=== PATIENT | male | born 1965 | race Caucasian/White ===

== ENCOUNTER 2017-06-07 17:42 | Emergency (ER) | payer OTHER ==
[~2017-06-07] VITALS: Ht 172.7 cm; Wt 106.1 kg
[~2017-06-07 17:42] MED LIST: ALBU90OI; ALBU90OI INH; ALPR1 PO; AMIT10 PO; AMLO5; AMLO5 PO; AMOCLA875 PO; AMOX500 PO; Advair Hfa 230-12 GM; CARI350; CARI350 PO; CARV6.25 PO; CEPH500; CEPH500 PO; CLIN300 PO; CLON.2TP TP; CLON1 PO; CODGUAEL PO; CYCL10; CYCL10 PO; DIAZ10; DIAZ5; DOXA2; DRON5 PO; DULO30 PO; FOLI1; HYDACE10B; HYDACE10B PO; HYDACE5; HYDACE5 PO; HYDACE5325 PO; HYDMOR4; HYDMOR8 PO; LACT10SY; LAMOTRIGINE300 MG PO; LISI20 PO; LORA1 PO; LORA10ER; LORA2 PO; LOSA50; METF500 PO; METO100ER; MORP15ER PO; NIFE30ER; OXYACE5T PO; PENVK500 PO; PHENERGAN; PIOG15; PRED20 PO; PROM25 PO; PROM6.25SY; PROMETHAZINE; Percocet 10-321 EACH PO; RXLORA1 PO; RXTRAM50 PO; SERT25; SUMA25; TRAM50 PO; TRAZ50 PO; TRIAOI; TRIHYD PO; ZOLP10 PO
[2017-06-07 19:04] LABS: BASOPHILS ABSOLUTE AUTO 0.02 K/mm3 (0.00-0.23); BASOPHILS PERCENT AUTO 0 % (0-2); EOSINOPHILS ABSOLUTE AUTO 0.54 K/mm3 (0.00-0.68); EOSINOPHILS PERCENT AUTO 8 % (0-6); Hematocrit 42.5 % (37.0-53.0); Hemoglobin 13.6 g/dL (13.5-17.5); IMMATURE GRAN ABSOLUTE AUTO 0.02 K/mm3 (0.00-0.10); IMMATURE GRAN PERCENT AUTO 0 % (0-1); LYMPHOCYTES ABSOLUTE AUTO 1.71 K/mm3 (0.84-5.20); LYMPHOCYTES PERCENT AUTO 25 % (21-46); MONOCYTES ABSOLUTE AUTO 1.07 K/mm3 (0.16-1.47); MONOCYTES PERCENT AUTO 16 % (4-13); Mean Corpuscular HGB 28.3 pg (26.0-34.0); Mean Corpuscular Volume 89 fL (80-100); Mean Platelet Volume 10.3 fL (9.1-12.4); NEUTROPHILS ABSOLUTE AUTO 3.46 K/mm3 (1.96-9.15); NEUTROPHILS PERCENT AUTO 51 % (41-73); Platelet Count 209 K/mm3 (150-400); RDW Coefficient Variation 13.2 % (11.7-14.2); RDW Standard Deviation 43.1 fL (35.1-46.3); White Blood Cell Count 6.82 K/mm3 (4.00-11.30)
[2017-06-07 19:12] LABS: Source, Urine Clean Catch
[2017-06-07 19:22] LABS: Appearance, Urine Hazy (Clear); Blood, Urine 1+ (Neg); Color, Urine Amber (P-Yellow); Glucose Qualitative, Urine Neg (Neg); Ketones, Urine 1+ (Neg); Leukocyte Esterase, Urine 1+ (Neg); Nitrite, Urine Neg (Neg); Protein, Urine 3+ (Neg); Specific Gravity, Urine 1.025 (1.003-1.022); Urobilinogen, Urine 1+ (Normal)
[2017-06-07 19:26] LABS: Alanine Aminotransfer (ALT/SGP 34 U/L (12-78); Albumin, Blood 3.5 g/dL (3.4-5.0); Albumin/Globulin Ratio 1.2 (0.8-1.8); Alk Phos 91 U/L (50-136); Anion Gap 8 mmol/L (6-16); Aspartate Aminotrans (AST/SGOT 34 U/L (12-37); Bilirubin, Total 0.4 mg/dL (0.1-1.0); Blood Urea Nitrogen 29 mg/dL (8-24); Bun/Creatinine Ratio 21.6 (12.0-20.0); CO2, Blood 26 mmol/L (21-32); Calcium, Blood 8.4 mg/dL (8.5-10.1); Chloride, Blood 106 mmol/L (98-108); Creatinine, Blood 1.34 mg/dL (0.60-1.20); Ethanol (Alcohol), Blood, Med <3 mg/dL; Glomerular Filtration Rate 59 (60-); Glucose, Blood 116 mg/dL (70-99); Potassium, Blood 3.9 mmol/L (3.5-5.5); Sodium, Blood 140 mmol/L (136-145); Total Protein, Blood 6.5 g/dL (6.4-8.2)
[2017-06-07 19:42] LABS: Bacteria Few /hpf; Red Blood Cells, Urine Not Seen /hpf (0-2); Squamous Epithelial Cells Few /hpf (Few); White Blood Cells, Urine Not Seen /hpf (0-5)
[2018-04-01] MEDS ORDERED: LAMO100 PO (19:23)
[2018-04-01] MEDS ORDERED: PRAZ1 PO (19:23)
[2018-04-01] MEDS ORDERED: GABA300 PO (19:24)
[2018-04-01] MEDS ORDERED: TEMA15 PO (19:24)
[2018-04-01] MEDS ORDERED: Amlodipine-Ben1 EAC3 PO (19:24)
[2018-04-01] MEDS ORDERED: HYDPAM25 PO (19:24)
[2018-04-01] MEDS ORDERED: Tizanidine HCl2 MG (19:24)
[2018-04-01] MEDS ORDERED: Neurontin 100100 MG PO (19:49)
== END 2017-06-07 22:27 | disposition home or self-care (01) ==
LOC: ER 17:42
PROVIDERS: Emergency Medicine
DX: R51 Headache (principal); R20.2 Paresthesia of skin; Z88.8 Allergy status to other drugs, medicaments and biological substances; Z88.6 Allergy status to analgesic agent; Z88.2 Allergy status to sulfonamides; Z91.040 Latex allergy status; Z79.899 Other long term (current) drug therapy; Z79.891 Long term (current) use of opiate analgesic; I10 Essential (primary) hypertension; E11.9 Type 2 diabetes mellitus without complications; F17.200 Nicotine dependence, unspecified, uncomplicated
CPT/HCPCS: 36415; 70450; 71046; 80053; 81001; 85025; 87086; 93005; 93010; 96374; 96375; 99284; G0480; J0780; J1200

== ENCOUNTER 2017-07-06 23:03 | Emergency (ER) | payer OTHER ==
[~2017-07-06] VITALS: Ht 172.7 cm; Wt 105.2 kg
[2017-07-07 00:18] LABS: BASOPHILS ABSOLUTE AUTO 0.02 K/mm3 (0.00-0.23); BASOPHILS PERCENT AUTO 0 % (0-2); EOSINOPHILS PERCENT AUTO 6 % (0-6); Hematocrit 42.6 % (37.0-53.0); Hemoglobin 13.4 g/dL (13.5-17.5); IMMATURE GRAN ABSOLUTE AUTO 0.02 K/mm3 (0.00-0.10); IMMATURE GRAN PERCENT AUTO 0 % (0-1); LYMPHOCYTES ABSOLUTE AUTO 1.38 K/mm3 (0.84-5.20); LYMPHOCYTES PERCENT AUTO 16 % (21-46); MONOCYTES ABSOLUTE AUTO 1.32 K/mm3 (0.16-1.47); MONOCYTES PERCENT AUTO 15 % (4-13); Mean Corpuscular HGB 28.2 pg (26.0-34.0); Mean Corpuscular HGB Conc 31.5 g/dL (31.5-36.5); Mean Corpuscular Volume 90 fL (80-100); Mean Platelet Volume 10.4 fL (9.1-12.4); NEUTROPHILS ABSOLUTE AUTO 5.39 K/mm3 (1.96-9.15); NEUTROPHILS PERCENT AUTO 63 % (41-73); Platelet Count 220 K/mm3 (150-400); RDW Coefficient Variation 13.3 % (11.7-14.2); Red Blood Cell Count 4.76 M/mm3 (4.30-5.90); White Blood Cell Count 8.63 K/mm3 (4.00-11.30)
[2017-07-07 00:37] LABS: Alanine Aminotransfer (ALT/SGP 23 U/L (12-78); Albumin, Blood 3.2 g/dL (3.4-5.0); Albumin/Globulin Ratio 1.1 (0.8-1.8); Alk Phos 92 U/L (50-136); Anion Gap 6 mmol/L (6-16); Aspartate Aminotrans (AST/SGOT 12 U/L (12-37); Bilirubin, Total 0.3 mg/dL (0.1-1.0); Blood Urea Nitrogen 19 mg/dL (8-24); Bun/Creatinine Ratio 22.5 (12.0-20.0); CO2, Blood 27 mmol/L (21-32); Calcium, Blood 7.9 mg/dL (8.5-10.1); Chloride, Blood 107 mmol/L (98-108); Creatinine, Blood 0.84 mg/dL (0.60-1.20); Glomerular Filtration Rate >60 (60-); Glucose, Blood 126 mg/dL (70-99); Potassium, Blood 3.7 mmol/L (3.5-5.5); Sodium, Blood 140 mmol/L (136-145); Total Protein, Blood 6.2 g/dL (6.4-8.2)
[2018-04-01] MEDS ORDERED: PRAZ1 PO (19:23)
[2018-04-01] MEDS ORDERED: LAMO100 PO (19:23)
[2018-04-01] MEDS ORDERED: HYDPAM25 PO (19:24)
[2018-04-01] MEDS ORDERED: Amlodipine-Ben1 EAC3 PO (19:24)
[2018-04-01] MEDS ORDERED: Tizanidine HCl2 MG (19:24)
[2018-04-01] MEDS ORDERED: TEMA15 PO (19:24)
[2018-04-01] MEDS ORDERED: GABA300 PO (19:24)
[2018-04-01] MEDS ORDERED: Neurontin 100100 MG PO (19:49)
== END 2017-07-07 01:21 | disposition home or self-care (01) ==
LOC: ER 23:03
PROVIDERS: Emergency Medicine
DX: A08.4 Viral intestinal infection, unspecified (principal); I10 Essential (primary) hypertension; E11.9 Type 2 diabetes mellitus without complications; F32.9 Major depressive disorder, single episode, unspecified; F17.200 Nicotine dependence, unspecified, uncomplicated; Z88.6 Allergy status to analgesic agent; Z88.2 Allergy status to sulfonamides; Z88.5 Allergy status to narcotic agent; Z88.8 Allergy status to other drugs, medicaments and biological substances; Z91.040 Latex allergy status; Z90.49 Acquired absence of other specified parts of digestive tract; Z79.899 Other long term (current) drug therapy
CPT/HCPCS: 36415; 80053; 83690; 85025; 96361; 96374; 99283; J2405; J7030

== ENCOUNTER 2018-02-06 21:10 | Emergency (ER) | payer OTHER ==
[~2018-02-06] VITALS: Ht 172.7 cm; Wt 106.1 kg
== END 2018-02-07 00:50 | disposition home or self-care (01) ==
LOC: ER 21:10
DX: R20.2 Paresthesia of skin (principal); Z88.6 Allergy status to analgesic agent; Z88.2 Allergy status to sulfonamides; Z88.8 Allergy status to other drugs, medicaments and biological substances; Z91.040 Latex allergy status; Z79.899 Other long term (current) drug therapy; I10 Essential (primary) hypertension; E11.9 Type 2 diabetes mellitus without complications; F17.200 Nicotine dependence, unspecified, uncomplicated
CPT/HCPCS: 99282

== ENCOUNTER 2018-06-26 10:30 | Emergency (ER) | payer OTHER ==
[~2018-06-26] VITALS: Ht 170.2 cm; Wt 111.1 kg
[~2018-06-26 10:30] MED LIST changes: +AMIT50 PO; +Amlodipine-Ben1 EAC3 PO; +ESCI20 PO; +FLUT1DIS5 INH; +GABA300 PO; +HYDHCL25 PO; +HYDPAM25 PO; +LAMO100 PO; +LINZESS145 MCG PO; +Neurontin 100100 MG PO; +PRAZ1 PO; +TEMA15 PO; +Tizanidine HCl2 MG
[2018-06-26 10:55] LABS: BASOPHILS ABSOLUTE AUTO 0.05 K/mm3 (0.00-0.23); BASOPHILS PERCENT AUTO 1 % (0-2); EOSINOPHILS ABSOLUTE AUTO 0.29 K/mm3 (0.00-0.68); EOSINOPHILS PERCENT AUTO 3 % (0-6); Hematocrit 46.3 % (37.0-53.0); Hemoglobin 14.5 g/dL (13.5-17.5); IMMATURE GRAN ABSOLUTE AUTO 0.07 K/mm3 (0.00-0.10); IMMATURE GRAN PERCENT AUTO 1 % (0-1); LYMPHOCYTES ABSOLUTE AUTO 2.41 K/mm3 (0.84-5.20); LYMPHOCYTES PERCENT AUTO 27 % (21-46); MONOCYTES ABSOLUTE AUTO 0.99 K/mm3 (0.16-1.47); MONOCYTES PERCENT AUTO 11 % (4-13); Mean Corpuscular HGB 28.4 pg (26.0-34.0); Mean Corpuscular HGB Conc 31.3 g/dL (31.5-36.5); Mean Corpuscular Volume 91 fL (80-100); Mean Platelet Volume 10.1 fL (9.1-12.4); NEUTROPHILS ABSOLUTE AUTO 5.22 K/mm3 (1.96-9.15); NEUTROPHILS PERCENT AUTO 58 % (41-73); Platelet Count 230 K/mm3 (150-400); RDW Coefficient Variation 13.6 % (11.7-14.2); RDW Standard Deviation 45.2 fL (35.1-46.3); Red Blood Cell Count 5.11 M/mm3 (4.30-5.90); White Blood Cell Count 9.03 K/mm3 (4.00-11.30)
[2018-06-26 10:56] LABS: Base Excess Venous 3.6 mmol/L; Bicarbonate Venous 26.8 mmol/L (24.0-30.0); PO2 Venous 144 mmHg (38-42); pH Blood Venous 7.39 (7.34-7.37)
[2018-06-26 11:19] LABS: Alanine Aminotransfer (ALT/SGP 24 U/L (12-78); Albumin, Blood 3.5 g/dL (3.4-5.0); Albumin/Globulin Ratio 1.2 (0.8-1.8); Alk Phos 96 U/L (50-136); Anion Gap 6 mmol/L (6-16); Aspartate Aminotrans (AST/SGOT 13 U/L (12-37); Bilirubin, Total 0.2 mg/dL (0.1-1.0); Blood Urea Nitrogen 17 mg/dL (8-24); Bun/Creatinine Ratio 16.7 (12.0-20.0); CO2, Blood 28 mmol/L (21-32); Calcium, Blood 8.3 mg/dL (8.5-10.1); Chloride, Blood 107 mmol/L (98-108); Creatinine, Blood 1.02 mg/dL (0.60-1.20); Ethanol (Alcohol), Blood, Med <3 mg/dL; Globulin, Blood 2.8 g/dL (2.2-4.0); Glomerular Filtration Rate >60 (60-); Glucose, Blood 151 mg/dL (70-99); Potassium, Blood 4.5 mmol/L (3.5-5.5); Sodium, Blood 141 mmol/L (136-145); Total Protein, Blood 6.3 g/dL (6.4-8.2); Troponin I <0.015 ng/mL (0.000-0.040)
[2018-06-26] MEDS ORDERED: Zithromax250 MG PO (12:36)
== END 2018-06-26 13:40 | disposition home or self-care (01) ==
LOC: ER 10:30
PROVIDERS: Emergency Medicine
DX: J18.1 Lobar pneumonia, unspecified organism (principal); G89.29 Other chronic pain; Z88.8 Allergy status to other drugs, medicaments and biological substances; Z88.6 Allergy status to analgesic agent; Z88.2 Allergy status to sulfonamides; Z91.040 Latex allergy status; Z79.899 Other long term (current) drug therapy; I10 Essential (primary) hypertension; E11.9 Type 2 diabetes mellitus without complications; F32.9 Major depressive disorder, single episode, unspecified; F17.200 Nicotine dependence, unspecified, uncomplicated
CPT/HCPCS: 36415; 71046; 80053; 82803; 84484; 85025; 93005; 93010; 94640; 96361; 96365; 99284-25; G0480; J0696; J7030; J7120

== ENCOUNTER 2018-11-11 20:34 | Emergency (ER) | payer OTHER ==
[~2018-11-11] VITALS: Ht 157.5 cm; Wt 112.5 kg
[~2018-11-11 20:34] MED LIST changes: +Zithromax250 MG PO
[2018-11-11] MEDS ORDERED: PROM25 PO (21:06)
[2018-11-11] MEDS ORDERED: ALPR1 PO (21:07)
[2018-11-11] MEDS ORDERED: ALBU90OI6 INH (21:08)
[2018-11-11] MEDS ORDERED: Bupropion Xl150 MG PO (21:08)
[2018-11-11] MEDS ORDERED: VARE1 PO (21:09)
== END 2018-11-11 22:52 | disposition home or self-care (01) ==
LOC: ER 20:34
DX: G89.29 Other chronic pain (principal); Z88.6 Allergy status to analgesic agent; Z88.8 Allergy status to other drugs, medicaments and biological substances; Z88.2 Allergy status to sulfonamides; Z91.040 Latex allergy status; Z79.899 Other long term (current) drug therapy; I10 Essential (primary) hypertension; E11.9 Type 2 diabetes mellitus without complications; F32.9 Major depressive disorder, single episode, unspecified; F17.200 Nicotine dependence, unspecified, uncomplicated
CPT/HCPCS: 99282; A9270

== ENCOUNTER 2019-06-24 20:16 | Emergency (ER) | payer OTHER ==
[~2019-06-24] VITALS: Ht 170.2 cm; Wt 119.8 kg
[~2019-06-24 20:16] MED LIST changes: +ALBU90OI6 INH; +Bupropion Xl150 MG PO; +VARE1 PO
== END 2019-06-24 22:23 | disposition home or self-care (01) ==
LOC: ER 20:16
DX: R10.32 Left lower quadrant pain (principal); I10 Essential (primary) hypertension; E11.9 Type 2 diabetes mellitus without complications; F32.9 Major depressive disorder, single episode, unspecified; F17.200 Nicotine dependence, unspecified, uncomplicated; Z79.899 Other long term (current) drug therapy; Z79.51 Long term (current) use of inhaled steroids
CPT/HCPCS: 99283; A9270

== ENCOUNTER 2020-02-17 21:46 | Inpatient (IN) | payer OTHER ==
[~2020-02-17] VITALS: Ht 177.8 cm; Wt 124.3 kg
[~2020-02-17 21:46] MED LIST changes: -ALBU90OI6 INH; +CODEINE-GUAIFE120 M1 PO
[2020-02-18 03:27] LABS: BASOPHILS ABSOLUTE AUTO 0.04 K/mm3 (0.00-0.23); BASOPHILS PERCENT AUTO 0 % (0-2); EOSINOPHILS ABSOLUTE AUTO 0.21 K/mm3 (0.00-0.68); EOSINOPHILS PERCENT AUTO 2 % (0-6); Hematocrit 46.6 % (37.0-53.0); Hemoglobin 14.7 g/dL (13.5-17.5); IMMATURE GRAN ABSOLUTE AUTO 0.11 K/mm3 (0.00-0.10); IMMATURE GRAN PERCENT AUTO 1 % (0-1); LYMPHOCYTES ABSOLUTE AUTO 2.59 K/mm3 (0.84-5.20); LYMPHOCYTES PERCENT AUTO 26 % (21-46); MONOCYTES ABSOLUTE AUTO 1.04 K/mm3 (0.16-1.47); MONOCYTES PERCENT AUTO 10 % (4-13); Mean Corpuscular HGB 27.8 pg (26.0-34.0); Mean Corpuscular HGB Conc 31.5 g/dL (31.5-36.5); Mean Corpuscular Volume 88 fL (80-100); Mean Platelet Volume 10.2 fL (9.1-12.4); NEUTROPHILS ABSOLUTE AUTO 6.16 K/mm3 (1.96-9.15); NEUTROPHILS PERCENT AUTO 61 % (41-73); Platelet Count 206 K/mm3 (150-400); RDW Coefficient Variation 13.3 % (11.7-14.2); RDW Standard Deviation 43.6 fL (35.1-46.3); Red Blood Cell Count 5.29 M/mm3 (4.30-5.90); White Blood Cell Count 10.15 K/mm3 (4.00-11.30)
[2020-02-18 04:00] LABS: Alanine Aminotransfer (ALT/SGP 21 U/L (12-78); Albumin, Blood 3.5 g/dL (3.4-5.0); Albumin/Globulin Ratio 1.2 (0.8-1.8); Alk Phos 98 U/L (50-136); Anion Gap 4 mmol/L (6-16); Aspartate Aminotrans (AST/SGOT 10 U/L (12-37); Bilirubin, Total 0.4 mg/dL (0.1-1.0); Blood Urea Nitrogen 26 mg/dL (8-24); Bun/Creatinine Ratio 23.2 (12.0-20.0); CO2, Blood 29 mmol/L (21-32); Calcium, Blood 8.1 mg/dL (8.5-10.1); Chloride, Blood 107 mmol/L (98-108); Creatinine, Blood 1.12 mg/dL (0.60-1.20); Glomerular Filtration Rate >60 (60-); Glucose, Blood 211 mg/dL (70-99); Potassium, Blood 3.9 mmol/L (3.5-5.5); Sodium, Blood 140 mmol/L (136-145); Total Protein, Blood 6.5 g/dL (6.4-8.2); Troponin I <0.015 ng/mL (0.000-0.040)
[2020-02-18] MEDS ORDERED: PRED20 PO (05:10)
[2020-02-18] MEDS ORDERED: BENZ100A PO (05:10)
[2020-02-18] MEDS ORDERED: DOXY100 PO (05:13)
[2020-02-18] MEDS ORDERED: BUPROPION XL150 M1 PO (14:09)
[2020-02-18] MEDS ORDERED: PRAZ2 PO (14:11)
[2020-02-18] MEDS ORDERED: QUETIAPINE FUMA50 M2 PO (14:11)
[2020-02-18] MEDS ORDERED: Methocarbamol500 MG PO (14:11)
[2020-02-18] MEDS ORDERED: Trazodone HCl300 MG PO (14:12)
[2020-02-18] MEDS ORDERED: HYDHCL25 PO (14:13)
[2020-02-18] MEDS ORDERED: FLUTICASONE-SA1 EA10 INH (14:14)
[2020-02-18] MEDS ORDERED: IPRAT-ALBUT 0.5-3 ML NEB (14:15)
[2020-02-18] MEDS ORDERED: GUAI600T33 PO (14:16)
[2020-02-18] MEDS ORDERED: ALBU90OI6 INH (14:17)
[2020-02-18] MEDS ORDERED: GABAPENTIN600 MG PO (14:18)
[2020-02-18] MEDS ORDERED: LORAZEPAM0.5 MG PO (14:19)
--- NOTE | 2020-02-18 16:36 | NUR ---
ADMISSION: REPORT RECEIVED FROM ED AT ABOUT 0715. PT TO ROOM AT ABOUT 0725. UPON ASSESSMENT PT IS IN NO VISABLE DISTRESS, DOES NOT APPEAR SOB. VSS, A/O SOMEWHAT DROWSY, PT REPORTS FROM BEING AWAKE MOST TO THE NIGHT. SATS 95% ON 1L NC. PT REPORTS CHEST IS PAINFUL AND ACHY WHEN HE BREATHES IN. WILL CTM PT STATUS.
--- NOTE | 2020-02-18 16:39 | NUR ---
SUMMARY: PT REPORTS FEELING "MUCH BETTER" SINCE ADMISSION. PT HAS RECEIVED MEDICATION OF PAIN AND BREATHING TREATMENTS WELL SOLU-MEDROL. PT REPORTS HE CAN TAKE A DEEPER BREATH WITHOUT IT BEING PAINFUL AND DEMONSTRATES. ANTIBIOTICS INFUSED AND TELE WNL. WILL CTM AND REPORT TO NOC RN
--- NOTE | 2020-02-18 22:30 | NUR ---
HAND OFF GIVEN TO Sudarshan HAJI RN USING SBAR.
--- NOTE | 2020-02-18 22:30 | NUR ---
ASSUMED CARE PT. PT SLEEPING WITH O2 OFF R/A SATS 87% REPLACED O2 WITH SATS IMMEDIATE 91%.
[2020-02-19] MEDS ORDERED: FAMO20 PO (12:29)
[2020-02-19] MEDS ORDERED: Q-Tussin100 MG/5 M PO (12:29)
[2020-02-19] MEDS ORDERED: PRED20 PO (12:30)
[2020-02-19] MEDS ORDERED: AMOCLA875 PO (12:31)
[2020-02-19] MEDS ORDERED: [UNRECOGNIZED DRUG - OTHER] PO (12:32)
--- NOTE | 2020-02-19 12:55 | NUR ---
DISCHARGE PT EDUCATED ON AND RECEIVED PRINTED DISCHARGE INSTRUCTIONS AND VERBALIZED AN UNDERSTANDING. SATS STABLE ON RA AND WITH ACTIVITY. IV DC'D. TELE BOX RETURNED TO [employer] TEACHER. RX FAXED TO [facility] [address]. PT GATHERED ALL PERSONAL BELONGINGS AND WAITING FOR RIDE HOME.
== END 2020-02-19 13:02 | disposition home or self-care (01) | DRG 193 ==
LOC: ER 21:46 → SURS 02-18 05:41
PROVIDERS: Emergency Medicine; ADMIT Internal Medicine
DX: J18.9 Pneumonia, unspecified organism (principal); J96.01 Acute respiratory failure with hypoxia; J44.0 Chronic obstructive pulmonary disease with (acute) lower respiratory infection; J44.1 Chronic obstructive pulmonary disease with (acute) exacerbation; F41.9 Anxiety disorder, unspecified; E11.9 Type 2 diabetes mellitus without complications; I10 Essential (primary) hypertension; F17.210 Nicotine dependence, cigarettes, uncomplicated; E66.01 Morbid (severe) obesity due to excess calories; Z68.39 Body mass index [BMI] 39.0-39.9, adult
CPT/HCPCS: 36415; 71046; 80053; 82947; 84484; 85025; 93005; 93010; 94640; 94644; 94762; 96374; 96375; 99285-25; A9270-GY; J0456; J0696; J1650; J2270; J2405; J2930; J7050; J7512; Q2038

== ENCOUNTER 2020-02-19 19:50 | Inpatient (IN) | payer OTHER ==
[~2020-02-19] VITALS: Ht 177.8 cm; Wt 126.2 kg
[~2020-02-19 19:50] MED LIST changes: +ALBU90OI6 INH; +BENZ100A PO; +BUPROPION XL150 M1 PO; +DOXY100 PO; +FAMO20 PO; +FLUTICASONE-SA1 EA10 INH; +GABAPENTIN600 MG PO; +GUAI600T33 PO; +IPRAT-ALBUT 0.5-3 ML NEB; +LORAZEPAM0.5 MG PO; +Methocarbamol500 MG PO; +PRAZ2 PO; +Q-Tussin100 MG/5 M PO; +QUETIAPINE FUMA50 M2 PO; +Trazodone HCl300 MG PO; +[UNRECOGNIZED DRUG - OTHER] PO
[2020-02-19 20:27] LABS: BASOPHILS ABSOLUTE AUTO 0.03 K/mm3 (0.00-0.23); BASOPHILS PERCENT AUTO 0 % (0-2); EOSINOPHILS ABSOLUTE AUTO 0.04 K/mm3 (0.00-0.68); EOSINOPHILS PERCENT AUTO 0 % (0-6); Hematocrit 44.3 % (37.0-53.0); Hemoglobin 13.9 g/dL (13.5-17.5); IMMATURE GRAN ABSOLUTE AUTO 0.15 K/mm3 (0.00-0.10); IMMATURE GRAN PERCENT AUTO 1 % (0-1); LYMPHOCYTES ABSOLUTE AUTO 1.73 K/mm3 (0.84-5.20); LYMPHOCYTES PERCENT AUTO 8 % (21-46); MONOCYTES ABSOLUTE AUTO 1.93 K/mm3 (0.16-1.47); MONOCYTES PERCENT AUTO 9 % (4-13); Mean Corpuscular HGB 27.2 pg (26.0-34.0); Mean Corpuscular HGB Conc 31.4 g/dL (31.5-36.5); Mean Corpuscular Volume 87 fL (80-100); Mean Platelet Volume 10.4 fL (9.1-12.4); NEUTROPHILS ABSOLUTE AUTO 16.68 K/mm3 (1.96-9.15); NEUTROPHILS PERCENT AUTO 81 % (41-73); Platelet Count 235 K/mm3 (150-400); RDW Coefficient Variation 13.5 % (11.7-14.2); RDW Standard Deviation 43.2 fL (35.1-46.3); Red Blood Cell Count 5.11 M/mm3 (4.30-5.90); White Blood Cell Count 20.56 K/mm3 (4.00-11.30)
[2020-02-19 21:17] LABS: Albumin, Blood 3.8 g/dL (3.4-5.0); Albumin/Globulin Ratio 1.2 (0.8-1.8); Bilirubin, Total 0.4 mg/dL (0.1-1.0); Bun/Creatinine Ratio 26.5 (12.0-20.0); Calcium, Blood 9.1 mg/dL (8.5-10.1); Creatinine, Blood 1.36 mg/dL (0.60-1.20); Globulin, Blood 3.1 g/dL (2.2-4.0); Potassium, Blood 4.5 mmol/L (3.5-5.5); Total Protein, Blood 6.9 g/dL (6.4-8.2)
[2020-02-20 06:08] LABS: Influenza A Negative (NEGATIVE); Influenza B Negative (NEGATIVE)
--- NOTE | 2020-02-20 07:31 | NUR ---
SHIFT SUMMARY NEW ADMIT TO FLOOR THIS AM AROUND 0245 FOR COPD EX R/T PNEUMONIA & SEPSIS. WAS DC'D YESTERDAY 02/19/20 FOR EXACT SAME DX. AOX4. VSS. TELE NSR c BBB @87. SPO2 >90% ON RA. E/U RESPIRATIONS. LUNGS ARE DIM & HAVE EXPIRATORY WHEEZES T/O. PT RECIEVED BREATHING TX IN ER. RECIEVED 1ST DOSE ROCEPHIN & AZITHROMYACIN PER ORDERS. REPORTED 9/10 PAIN IN LUNGS WORSE c INSPIRATION, STATES THEY FEEL "ON FIRE"-MEDICATED c 50MCG FENTANYL & PT DENIES ANY RELIEF. MEDICATED c GUIFENESEN FOR COUGH. REPORTED NAUSEA & MEDICATED 1X c ZOFRAN. CALL LIGHT IN REACH.
--- NOTE | 2020-02-20 12:48 | NUR ---
PAtient is sitting on EOB and alert. Patient tells me about his medical history and current condition. Patient talks about his 7yrs in the [employer], his yrs as a security gaurd in [place] and his spiritual journey. Patient is emotional at times and shares very personal information. I listen empathically, normalize patient's experience, hear confession and provide pastoral credit counselor and prayer. Patient responds well and displays evidence of catharsis and restored princess. I will continue to remain available to patient and family.
--- NOTE | 2020-02-20 18:14 | NUR ---
PT HAS BEEN ANXIOUS OFF AND ON THROUGH DAY. REPORTS HE FEELS LIKE HE NEEDS TO "BOLT" AT TIMES DUE TO HX OF PTSD. HAS BEEN WALKING IN HALLWAY AND LISTENING TO MUSIC TO EASE ANXIETY. AT 1600 HE STARTED TO REPORT HE WAS GOING HOME AND IF THAT WOULD BE OK. SPOKE WITH MD AND DISCUSSED WITH PT HE COULD LEAVE AMA OR HE COULD BE GIVEN HIS NEXT DOSE OF ATIVAN AND SEE IF THAT HELPED HIS FEELINGS OF ANXIETY. PT COOPERATIVE STATING HE DIDN'T WANT TO LEAVE IF THE DRNargis DIDN'T FEEL IT WAS TIME AND WAS OK WITH TAKING ANOTHER DOSE OF LORAZEPAM. HAS SINCE BEEN MOVING ABOUT IN ROOM STATING HE IS FEELING BETTER. BP ELEVATED AND RECHECKED TWICE. CALLED MD ABOUT CONTINUED ELEVATED BP AND NEW ORDERS GIVEN. NO RESP DISTRESS SEEN TODAY. DOES REPORT ONGOING PAIN TO CHEST EXPECIALLY WHEN HE TAKES A DEEP BREATH. INSTRUCTED ON IS AND HAS BEEN SEEN USING IT SEVERAL TIMES.
--- NOTE | 2020-02-20 19:37 | NUR ---
ASSUMED CARE. MARIBEL JUST GOT OUT OF THE SHOWER, SHAVED AND GOT DRESSED. HE SAID HE FEELS SO MUCH BETTER. TELEMETRY IS OFF AGAIN, AND CONTINUES TO FALL OFF. HE STATES HE GETS WRAPPED UP INTO IT OR IT FALLS AND COMES OFF. HE HAS SEVERAL SNACK CHIPS ALL AROUND HIM. DISCUSSED DIABETIC RISK FOR CARBS. HE SAID HE KNOWS.ENCOURAGED HIM TO RE-THINK HIS DIET FOR THE SAFETY OF HIS HEALTH. HE DID NOT SAY MUCH TO IT. LUNG SOUNDS ARE EXPIRTORY WHEEZES THROUGHOUT. COUGH IS OCCATIONAL, DRY. HR REGULAR PER TELE WITH BBB. NO CHEST PAIN NOTED. ABDOMIN DISTENDED, FIRM, AND HYPERACTIVE BT. STATES IT HAS BEEN THAT WAY. DISCUSSED PAIN MANAGMENT, HE DOES NOT WANT TO USE THE FENTAYNL, STATES THERE WAS SOME CONFUSION TODAY. HE FEELS IF HE JUST HAS ANOTHER PILL OF NORCO HE WILL BE BETTER OFF THEN USING THE FENTANYL. HE ALSO ASKED IF HE CAN SWITCH ATIVAN FOR XANAX, AND HAVE NICOTINE PATCH. WILL CALL HOSPITALIST IN REGARDS TO THE REQUEST. HE PLANS TO GO FOR A WALK ON HIS OWN IN THE HALLS. WILL CONTINUE TO MONITOR.
--- NOTE | 2020-02-20 20:19 | NUR ---
SPOKE TO HOSPITALIST CHILO HENNING REGARDING INCREASE NORCO TO 2 TABS, CHANGE ATIVAN FOR XANAX, NICOTINE PATCH, AND CLARFICATION ON COUGH MEDICATIONS. ALL ORDERS RECEIVED.
--- NOTE | 2020-02-21 05:43 | NUR ---
SHIFT SUMMARY: MARIBEL HAD A BETTER NIGHT. HE WAS ABLE TO GET A GOOD NIGHT SLEEP FOR ABOUT 4 HOURS. HE SAID THAT IS THE BEST HE GOT IN A WHILE. PAIN IS BETTER CONTROLLED WITH 2 NORCO EVERY 4 HOURS. WE DISCUSSED SEVERAL MED CHANGES THAT CHILO HENNING APPROVED. WE CHANGED HIM TO NORCO 1-2 TABS EVERY 4 HOURS, XANAX INSTEAD OF ATIVAN, AND A NICOTINE PATCH. HE WAS UP WALKING IN THE HALLS SEVERAL TIMES. WE DID DISCUSS HIS ADA DIET THAT HE DOES NOT FOLLOW. HE EATS ALOT OF CARB FOODS, SUCH BAG OF CHIPS AND OTHER ITEMS HE GETS FROM THE VENDING MACHINES. BLOOD SUGAR WAS HIGH YESTERDAY AND COULD BE BECAUSE OF THIS AND THE COUGH SYRUP WHICH WAS SUGAR. WE SWITCHED HIM TO NON-SUGAR COUGH SYRUP. VS WNL, AFEBRILE. NO OTHER CHANGES TO REPORT. CALL LIGHT IN REACH.
[2020-02-21] MEDS ORDERED: Methocarbamol500 MG PO (12:57)
--- NOTE | 2020-02-21 13:00 | NUR ---
DISCHARGE INSTRUCTIONS COMPLETED AND DISCUSSED WITH PT EXPRESSING UNDERSTANDING. SCRIPTS FAXED TO [facility] [place]. TO [facility] VIA W/C.
[2020-02-21] MEDS ORDERED: Norco 5-325 Ta1 EACH PO (13:06)
[2020-02-21] MEDS ORDERED: NICODERM CQ1 EAC1 TOP (13:06)
[2020-02-21] MEDS ORDERED: LACTOBACILLUS1 EAC4 PO (13:07)
[2020-02-21] MEDS ORDERED: AMLO10 PO (13:07)
[2020-02-21] MEDS ORDERED: DELTASONE20 MG PO (13:08)
--- NOTE | 2020-02-21 13:29 | NUR ---
Patientis sitting on a chair and alert. Patient tells me about how he has improved and that he is hoping to go home today. 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 I listen empathically, reinforce helpful attitudes and practices and provide spiritual guidance. Patient responds well and voices appreciation for the visit
== END 2020-02-21 13:48 | disposition home or self-care (01) | DRG 871 ==
LOC: ER 19:50 → MEDS 02-20 01:15
PROVIDERS: Physician Assistant; ADMIT Internal Medicine
DX: A41.9 Sepsis, unspecified organism (principal); J18.9 Pneumonia, unspecified organism; J96.01 Acute respiratory failure with hypoxia; J44.0 Chronic obstructive pulmonary disease with (acute) lower respiratory infection; J44.1 Chronic obstructive pulmonary disease with (acute) exacerbation; Z20.828 Contact with and (suspected) exposure to other viral communicable diseases; F41.9 Anxiety disorder, unspecified; F17.210 Nicotine dependence, cigarettes, uncomplicated; Z68.39 Body mass index [BMI] 39.0-39.9, adult; E66.01 Morbid (severe) obesity due to excess calories
CPT/HCPCS: 36415; 80053; 82947; 83605; 85025; 87040; 87804; 94640; 94667; 94760; A9270-GY; J0696; J1650; J2405; J2930; J3010; U0003

== ENCOUNTER 2020-02-23 06:41 | Emergency (ER) | payer OTHER ==
[~2020-02-23] VITALS: Ht 177.8 cm; Wt 124.3 kg
[~2020-02-23 06:41] MED LIST changes: +AMLO10 PO; +DELTASONE20 MG PO; +LACTOBACILLUS1 EAC4 PO; +NICODERM CQ1 EAC1 TOP; +Norco 5-325 Ta1 EACH PO
[2020-02-23 08:09] LABS: BASOPHILS ABSOLUTE AUTO 0.05 K/mm3 (0.00-0.23); BASOPHILS PERCENT AUTO 1 % (0-2); EOSINOPHILS PERCENT AUTO 1 % (0-6); Hematocrit 46.2 % (37.0-53.0); Hemoglobin 14.4 g/dL (13.5-17.5); IMMATURE GRAN ABSOLUTE AUTO 0.37 K/mm3 (0.00-0.10); IMMATURE GRAN PERCENT AUTO 4 % (0-1); LYMPHOCYTES ABSOLUTE AUTO 1.96 K/mm3 (0.84-5.20); LYMPHOCYTES PERCENT AUTO 18 % (21-46); MONOCYTES PERCENT AUTO 10 % (4-13); Mean Corpuscular HGB 27.5 pg (26.0-34.0); Mean Corpuscular HGB Conc 31.2 g/dL (31.5-36.5); Mean Corpuscular Volume 88 fL (80-100); Mean Platelet Volume 10.6 fL (9.1-12.4); NEUTROPHILS ABSOLUTE AUTO 7.12 K/mm3 (1.96-9.15); NEUTROPHILS PERCENT AUTO 67 % (41-73); Platelet Count 212 K/mm3 (150-400); RDW Coefficient Variation 13.2 % (11.7-14.2); RDW Standard Deviation 43.1 fL (35.1-46.3); Red Blood Cell Count 5.24 M/mm3 (4.30-5.90)
[2020-02-23 08:33] LABS: Alanine Aminotransfer (ALT/SGP 36 U/L (12-78); Albumin, Blood 3.6 g/dL (3.4-5.0); Albumin/Globulin Ratio 1.3 (0.8-1.8); Alk Phos 76 U/L (50-136); Anion Gap 7 mmol/L (6-16); Aspartate Aminotrans (AST/SGOT 13 U/L (12-37); Bilirubin, Total 0.4 mg/dL (0.1-1.0); Blood Urea Nitrogen 35 mg/dL (8-24); Bun/Creatinine Ratio 31.2 (12.0-20.0); CO2, Blood 29 mmol/L (21-32); Calcium, Blood 8.5 mg/dL (8.5-10.1); Chloride, Blood 101 mmol/L (98-108); Creatinine, Blood 1.12 mg/dL (0.60-1.20); Globulin, Blood 2.8 g/dL (2.2-4.0); Glomerular Filtration Rate >60 (60-); Glucose, Blood 310 mg/dL (70-99); Potassium, Blood 4.6 mmol/L (3.5-5.5); Sodium, Blood 137 mmol/L (136-145); Total Protein, Blood 6.4 g/dL (6.4-8.2); Troponin I <0.015 ng/mL (0.000-0.040)
== END 2020-02-23 10:45 | disposition home or self-care (01) ==
LOC: ER 06:41
PROVIDERS: Emergency Medicine
DX: J18.9 Pneumonia, unspecified organism (principal); I10 Essential (primary) hypertension; E11.9 Type 2 diabetes mellitus without complications; F17.210 Nicotine dependence, cigarettes, uncomplicated; Z88.6 Allergy status to analgesic agent; Z88.2 Allergy status to sulfonamides; Z88.5 Allergy status to narcotic agent; Z91.040 Latex allergy status; Z88.8 Allergy status to other drugs, medicaments and biological substances; Z79.899 Other long term (current) drug therapy; Z79.52 Long term (current) use of systemic steroids
CPT/HCPCS: 36415; 71045; 80053; 84484; 85025; 93005; 93010; 94640; 99285-25

== ENCOUNTER 2020-02-23 21:37 | Emergency (ER) | payer OTHER ==
[~2020-02-23] VITALS: Ht 177.8 cm; Wt 124.3 kg
[2020-02-23 22:09] LABS: BASOPHILS ABSOLUTE AUTO 0.05 K/mm3 (0.00-0.23); BASOPHILS PERCENT AUTO 0 % (0-2); EOSINOPHILS PERCENT AUTO 0 % (0-6); Hemoglobin 14.9 g/dL (13.5-17.5); IMMATURE GRAN ABSOLUTE AUTO 0.26 K/mm3 (0.00-0.10); IMMATURE GRAN PERCENT AUTO 2 % (0-1); LYMPHOCYTES ABSOLUTE AUTO 0.96 K/mm3 (0.84-5.20); LYMPHOCYTES PERCENT AUTO 8 % (21-46); MONOCYTES ABSOLUTE AUTO 0.72 K/mm3 (0.16-1.47); MONOCYTES PERCENT AUTO 6 % (4-13); Mean Corpuscular HGB 27.6 pg (26.0-34.0); Mean Corpuscular HGB Conc 31.7 g/dL (31.5-36.5); Mean Corpuscular Volume 87 fL (80-100); Mean Platelet Volume 10.4 fL (9.1-12.4); NEUTROPHILS PERCENT AUTO 83 % (41-73); Platelet Count 242 K/mm3 (150-400); RDW Coefficient Variation 13.2 % (11.7-14.2); RDW Standard Deviation 42.1 fL (35.1-46.3); Red Blood Cell Count 5.39 M/mm3 (4.30-5.90); White Blood Cell Count 11.89 K/mm3 (4.00-11.30)
[2020-02-23 22:29] LABS: Alanine Aminotransfer (ALT/SGP 38 U/L (12-78); Albumin, Blood 3.7 g/dL (3.4-5.0); Albumin/Globulin Ratio 1.2 (0.8-1.8); Alk Phos 86 U/L (50-136); Anion Gap 10 mmol/L (6-16); Aspartate Aminotrans (AST/SGOT 15 U/L (12-37); Bilirubin, Total 0.5 mg/dL (0.1-1.0); Blood Urea Nitrogen 34 mg/dL (8-24); Bun/Creatinine Ratio 29.6 (12.0-20.0); CO2, Blood 27 mmol/L (21-32); Chloride, Blood 104 mmol/L (98-108); Creatinine, Blood 1.15 mg/dL (0.60-1.20); Glomerular Filtration Rate >60 (60-); Glucose, Blood 356 mg/dL (70-99); Potassium, Blood 4.5 mmol/L (3.5-5.5); Sodium, Blood 141 mmol/L (136-145); Total Protein, Blood 6.7 g/dL (6.4-8.2); Troponin I <0.015 ng/mL (0.000-0.040)
== END 2020-02-24 01:44 | disposition home or self-care (01) ==
LOC: ER 21:37
PROVIDERS: Physician Assistant
DX: J44.9 Chronic obstructive pulmonary disease, unspecified (principal); R07.9 Chest pain, unspecified; I10 Essential (primary) hypertension; F32.9 Major depressive disorder, single episode, unspecified; E11.9 Type 2 diabetes mellitus without complications; F17.210 Nicotine dependence, cigarettes, uncomplicated; Z88.6 Allergy status to analgesic agent; Z88.2 Allergy status to sulfonamides; Z88.8 Allergy status to other drugs, medicaments and biological substances; Z91.040 Latex allergy status; Z79.899 Other long term (current) drug therapy; Z79.52 Long term (current) use of systemic steroids
CPT/HCPCS: 36415; 71045; 71260; 80053; 84484; 85025; 93005; 93010; 94640; 96374; 99285-25; J3010; Q9967

== ENCOUNTER 2020-02-25 03:19 | Emergency (ER) | payer OTHER ==
[~2020-02-25] VITALS: Ht 177.8 cm; Wt 123.4 kg
== END 2020-02-25 06:52 | disposition home or self-care (01) ==
LOC: ER 03:19
DX: J42 Unspecified chronic bronchitis (principal); R07.89 Other chest pain; I10 Essential (primary) hypertension; E11.9 Type 2 diabetes mellitus without complications; F32.9 Major depressive disorder, single episode, unspecified; F17.200 Nicotine dependence, unspecified, uncomplicated; Z79.52 Long term (current) use of systemic steroids; Z88.6 Allergy status to analgesic agent; Z88.2 Allergy status to sulfonamides; Z88.8 Allergy status to other drugs, medicaments and biological substances; Z91.040 Latex allergy status; Z79.899 Other long term (current) drug therapy
CPT/HCPCS: 71046; 93005; 93010; 99285-25

== ENCOUNTER 2020-03-06 16:42 | Emergency (ER) | payer MEDICARE, OTHER ==
[~2020-03-06] VITALS: Ht 177.8 cm; Wt 118.8 kg
[~2020-03-06 16:42] MED LIST changes: -ALBU90OI6 INH; -AMLO10 PO; -BUPROPION XL150 M1 PO; -FLUTICASONE-SA1 EA10 INH; -GABAPENTIN600 MG PO; -GUAI600T33 PO; -IPRAT-ALBUT 0.5-3 ML NEB; -LORAZEPAM0.5 MG PO; -NICODERM CQ1 EAC1 TOP; -PRAZ2 PO; -QUETIAPINE FUMA50 M2 PO; -Trazodone HCl300 MG PO
[2020-03-06 17:38] LABS: BASOPHILS ABSOLUTE AUTO 0.03 K/mm3 (0.00-0.23); BASOPHILS PERCENT AUTO 0 % (0-2); EOSINOPHILS ABSOLUTE AUTO 0.07 K/mm3 (0.00-0.68); EOSINOPHILS PERCENT AUTO 1 % (0-6); Hematocrit 48.1 % (37.0-53.0); IMMATURE GRAN ABSOLUTE AUTO 0.15 K/mm3 (0.00-0.10); IMMATURE GRAN PERCENT AUTO 1 % (0-1); LYMPHOCYTES ABSOLUTE AUTO 2.08 K/mm3 (0.84-5.20); LYMPHOCYTES PERCENT AUTO 18 % (21-46); MONOCYTES ABSOLUTE AUTO 1.42 K/mm3 (0.16-1.47); MONOCYTES PERCENT AUTO 12 % (4-13); Mean Corpuscular HGB 27.4 pg (26.0-34.0); Mean Corpuscular HGB Conc 31.2 g/dL (31.5-36.5); Mean Corpuscular Volume 88 fL (80-100); Mean Platelet Volume 11.2 fL (9.1-12.4); NEUTROPHILS PERCENT AUTO 68 % (41-73); Platelet Count 205 K/mm3 (150-400); RDW Coefficient Variation 13.5 % (11.7-14.2); RDW Standard Deviation 43.5 fL (35.1-46.3); Red Blood Cell Count 5.47 M/mm3 (4.30-5.90); White Blood Cell Count 11.55 K/mm3 (4.00-11.30)
[2020-03-06 18:00] LABS: Alanine Aminotransfer (ALT/SGP 41 U/L (12-78); Albumin, Blood 3.5 g/dL (3.4-5.0); Albumin/Globulin Ratio 1.2 (0.8-1.8); Alk Phos 98 U/L (50-136); Anion Gap 5 mmol/L (6-16); Aspartate Aminotrans (AST/SGOT 16 U/L (12-37); Bilirubin, Total 0.6 mg/dL (0.1-1.0); Blood Urea Nitrogen 29 mg/dL (8-24); Bun/Creatinine Ratio 14.8 (12.0-20.0); CO2, Blood 33 mmol/L (21-32); Calcium, Blood 9.2 mg/dL (8.5-10.1); Chloride, Blood 105 mmol/L (98-108); Creatinine, Blood 1.96 mg/dL (0.60-1.20); Globulin, Blood 2.9 g/dL (2.2-4.0); Glomerular Filtration Rate 38 (60-); Glucose, Blood 252 mg/dL (70-99); Potassium, Blood 4.1 mmol/L (3.5-5.5); Sodium, Blood 143 mmol/L (136-145); Total Protein, Blood 6.4 g/dL (6.4-8.2); Troponin I <0.015 ng/mL (0.000-0.040)
[2020-03-06] MEDS ORDERED: BENZ100A PO (18:09)
== END 2020-03-06 18:43 | disposition home or self-care (01) ==
LOC: ER 16:42
PROVIDERS: Physician Assistant
DX: J44.9 Chronic obstructive pulmonary disease, unspecified (principal); F17.200 Nicotine dependence, unspecified, uncomplicated; I10 Essential (primary) hypertension; E11.9 Type 2 diabetes mellitus without complications; F32.9 Major depressive disorder, single episode, unspecified; Z88.6 Allergy status to analgesic agent; Z88.2 Allergy status to sulfonamides; Z79.52 Long term (current) use of systemic steroids; Z88.8 Allergy status to other drugs, medicaments and biological substances; Z91.040 Latex allergy status; Z79.899 Other long term (current) drug therapy
CPT/HCPCS: 36415; 71046; 80053; 83605; 84484; 85025; 93005; 93010; 94640; 99285-25

== ENCOUNTER 2020-03-09 22:10 | Inpatient (IN) | payer OTHER ==
[~2020-03-09] VITALS: Ht 172.7 cm; Wt 120.5 kg
[2020-03-09 22:29] LABS: PCO2 Arterial 61.3 mmHg (35-45); PO2 Arterial 51.2 mmHg (80-100); pH Blood Arterial 7.34 (7.35-7.45)
[2020-03-09 22:40] LABS: Calcium, Ionized (POC) 1.17 mmol/L (1.10-1.46); Chloride (POC) 99 mmol/L (98-108); Glucose (ISTAT POC) 319 mg/dL (70-99); Hemoglobin (POC) 17.3 g/dL (13.5-17.5); Potassium (POC) 5.3 mmol/L (3.5-5.5); Sodium (POC) 142 mmol/L (135-148); Total CO2 (POC) 30 mmol/L (21-32)
[2020-03-09 22:50] LABS: Source, Urine Clean Catch
[2020-03-09 22:55] LABS: Bilirubin, Urine Neg (Neg); Blood, Urine 3+ (Neg); Glucose Qualitative, Urine 4+ (Neg); Ketones, Urine 2+ (Neg); Leukocyte Esterase, Urine Neg (Neg); Nitrite, Urine Neg (Neg); Protein, Urine 4+ (Neg); Specific Gravity, Urine 1.025 (1.003-1.022); Urobilinogen, Urine NORM (Normal)
[2020-03-09 22:55] LABS: BASOPHILS ABSOLUTE AUTO 0.05 K/mm3 (0.00-0.23); BASOPHILS PERCENT AUTO 0 % (0-2); EOSINOPHILS ABSOLUTE AUTO 0.01 K/mm3 (0.00-0.68); EOSINOPHILS PERCENT AUTO 0 % (0-6); Hematocrit 51.5 % (37.0-53.0); Hemoglobin 15.5 g/dL (13.5-17.5); IMMATURE GRAN ABSOLUTE AUTO 0.24 K/mm3 (0.00-0.10); IMMATURE GRAN PERCENT AUTO 2 % (0-1); LYMPHOCYTES ABSOLUTE AUTO 1.07 K/mm3 (0.84-5.20); LYMPHOCYTES PERCENT AUTO 7 % (21-46); MONOCYTES ABSOLUTE AUTO 1.76 K/mm3 (0.16-1.47); MONOCYTES PERCENT AUTO 11 % (4-13); Mean Corpuscular HGB 27.6 pg (26.0-34.0); Mean Corpuscular HGB Conc 30.1 g/dL (31.5-36.5); Mean Corpuscular Volume 92 fL (80-100); Mean Platelet Volume 11.9 fL (9.1-12.4); NEUTROPHILS ABSOLUTE AUTO 13.08 K/mm3 (1.96-9.15); NEUTROPHILS PERCENT AUTO 81 % (41-73); Platelet Count 176 K/mm3 (150-400); RDW Coefficient Variation 13.8 % (11.7-14.2); RDW Standard Deviation 46.7 fL (35.1-46.3); Red Blood Cell Count 5.62 M/mm3 (4.30-5.90); White Blood Cell Count 16.21 K/mm3 (4.00-11.30)
[2020-03-09 23:01] LABS: Appearance, Urine Clear (Clear); Color, Urine Yellow (P-Yellow); White Blood Cells, Urine Rare /hpf (0-5)
[2020-03-09 23:02] LABS: Amorphous Light (0-Heavy); Bacteria Not Seen /hpf; Red Blood Cells, Urine Rare /hpf (0-2); Squamous Epithelial Cells Rare /hpf (Few)
[2020-03-09 23:03] LABS: U Amphetamine Screen Not Detected; U Barbituate Screen Not Detected; U Benzodiazapine Screen DETECTED; U Cocaine Screen Not Detected; U Methadone Screen Not Detected; U Methamphetamine Screen Not Detected
[2020-03-09 23:04] LABS: U Buprenorphine Screen Not Detected; U Cannabinoids Screen DETECTED; U Opiates Screen Not Detected; U Oxycodone Screen Not Detected; U Phencyclidine Screen Not Detected; U Propoxyphene Screen Not Detected
[2020-03-09 23:14] LABS: Alanine Aminotransfer (ALT/SGP 42 U/L (12-78); Albumin, Blood 3.6 g/dL (3.4-5.0); Albumin/Globulin Ratio 1.1 (0.8-1.8); Alk Phos 110 U/L (50-136); Anion Gap 3 mmol/L (6-16); Aspartate Aminotrans (AST/SGOT 14 U/L (12-37); Bilirubin, Total 0.4 mg/dL (0.1-1.0); Blood Urea Nitrogen 26 mg/dL (8-24); Bun/Creatinine Ratio 25.2 (12.0-20.0); CO2, Blood 33 mmol/L (21-32); Calcium, Blood 9.2 mg/dL (8.5-10.1); Chloride, Blood 106 mmol/L (98-108); Creatinine, Blood 1.03 mg/dL (0.60-1.20); Globulin, Blood 3.3 g/dL (2.2-4.0); Glomerular Filtration Rate >60 (60-); Glucose, Blood 326 mg/dL (70-99); Potassium, Blood 5.4 mmol/L (3.5-5.5); Sodium, Blood 142 mmol/L (136-145); Total Protein, Blood 6.9 g/dL (6.4-8.2)
--- NOTE | 2020-03-10 05:18 | NUR ---
shift summary pt very confused. oriented to self. somnolent. tele nsr/tachy 2lnc/cpap when sleeping incontinent voids noted to have large bruising on l hip - pictures in chart no c/o pain vss call light within reach, bed in lowest position, bed alarm on. will continue to monitor.
--- NOTE | 2020-03-10 07:14 | NUR ---
ASSUMED CARE OF PT, RECEIVED REPORT FROM SHASHANK DEAL. PT RESTING ON RIGHT SIDE, EYES CLOSED, NADN, BED ALARM ON.
[2020-03-10 09:34] LABS: BASOPHILS ABSOLUTE AUTO 0.03 K/mm3 (0.00-0.23); BASOPHILS PERCENT AUTO 0 % (0-2); EOSINOPHILS ABSOLUTE AUTO 0.02 K/mm3 (0.00-0.68); EOSINOPHILS PERCENT AUTO 0 % (0-6); Hematocrit 47.3 % (37.0-53.0); Hemoglobin 14.2 g/dL (13.5-17.5); IMMATURE GRAN ABSOLUTE AUTO 0.15 K/mm3 (0.00-0.10); IMMATURE GRAN PERCENT AUTO 1 % (0-1); LYMPHOCYTES ABSOLUTE AUTO 1.78 K/mm3 (0.84-5.20); LYMPHOCYTES PERCENT AUTO 16 % (21-46); MONOCYTES ABSOLUTE AUTO 1.29 K/mm3 (0.16-1.47); MONOCYTES PERCENT AUTO 11 % (4-13); Mean Corpuscular HGB 27.7 pg (26.0-34.0); Mean Corpuscular Volume 92 fL (80-100); NEUTROPHILS ABSOLUTE AUTO 8.14 K/mm3 (1.96-9.15); NEUTROPHILS PERCENT AUTO 71 % (41-73); Platelet Count 171 K/mm3 (150-400); RDW Standard Deviation 47.1 fL (35.1-46.3); Red Blood Cell Count 5.13 M/mm3 (4.30-5.90); White Blood Cell Count 11.41 K/mm3 (4.00-11.30)
[2020-03-10 09:53] LABS: Alanine Aminotransfer (ALT/SGP 32 U/L (12-78); Albumin, Blood 3.1 g/dL (3.4-5.0); Albumin/Globulin Ratio 1.1 (0.8-1.8); Alk Phos 97 U/L (50-136); Anion Gap 1 mmol/L (6-16); Aspartate Aminotrans (AST/SGOT 9 U/L (12-37); Bilirubin, Total 0.5 mg/dL (0.1-1.0); Blood Urea Nitrogen 20 mg/dL (8-24); Bun/Creatinine Ratio 20.4 (12.0-20.0); CO2, Blood 35 mmol/L (21-32); Calcium, Blood 8.9 mg/dL (8.5-10.1); Chloride, Blood 111 mmol/L (98-108); Creatinine, Blood 0.98 mg/dL (0.60-1.20); Globulin, Blood 2.7 g/dL (2.2-4.0); Glomerular Filtration Rate >60 (60-); Glucose, Blood 260 mg/dL (70-99); Potassium, Blood 4.4 mmol/L (3.5-5.5); Sodium, Blood 147 mmol/L (136-145); Total Protein, Blood 5.8 g/dL (6.4-8.2)
[2020-03-10] MEDS ORDERED: GABAPENTIN600 MG PO ×2 (13:48)
[2020-03-10] MEDS ORDERED: NICODERM CQ1 EAC1 TOP ×2 (13:49)
[2020-03-10] MEDS ORDERED: BUPROPION XL150 M1 PO ×2 (13:50)
[2020-03-10] MEDS ORDERED: LORAZEPAM0.5 MG PO ×2 (13:50)
[2020-03-10] MEDS ORDERED: AMLO10 PO ×2 (13:50)
[2020-03-10] MEDS ORDERED: Methocarbamol500 MG PO ×2 (13:51)
[2020-03-10] MEDS ORDERED: QUETIAPINE FUMA50 M2 PO ×2 (13:51)
[2020-03-10] MEDS ORDERED: PRAZ2 PO ×2 (13:51)
[2020-03-10] MEDS ORDERED: IPRAT-ALBUT 0.5-3 ML NEB ×2 (13:52)
[2020-03-10] MEDS ORDERED: HYDHCL25 PO (13:52)
[2020-03-10] MEDS ORDERED: Trazodone HCl300 MG PO ×2 (13:52)
[2020-03-10] MEDS ORDERED: ALBU90OI6 INH ×2 (13:53)
[2020-03-10] MEDS ORDERED: FLUTICASONE-SA1 EA10 INH ×2 (13:53)
[2020-03-10] MEDS ORDERED: GUAI600T33 PO ×2 (13:53)
[2020-03-10] MEDS ORDERED: Norco 5-325 Ta1 EACH PO ×2 (16:29)
--- NOTE | 2020-03-10 17:00 | NUR ---
THROUGHOUT THE MORNING AND AFTERNOON PT IS MORE ALERT AND ORIENTED TO SELF, PLACE, SITUATION. PT STATES HE REMEMBERED ROLLING OFF HIS BED AND HITTING HIS HEAD PRIOR TO ARRIVING IN THE ED YESTERDAY. REPEAT HEAD CT AND CHEST XRAY ARE NEGATIVE. PT REQUESTS TO GO HOME, DR CHE TO ROOM, DISCUSSES PLAN OF CARE. PT V/U, DC'D HOME IN [facility].
== END 2020-03-10 17:02 | disposition home or self-care (01) | DRG 917 ==
LOC: ER 22:10 → PCU 03-10 01:40
PROVIDERS: Emergency Medicine; ADMIT Internal Medicine
PROC: 5A09357 Assistance with Respiratory Ventilation, Less than 24 Consecutive Hours, Continuous Positive Airway Pressure (ICD-10-PCS; principal; 2020-03-10)
DX: T43.595A Adverse effect of other antipsychotics and neuroleptics, initial encounter (principal); G92 Toxic encephalopathy; J96.21 Acute and chronic respiratory failure with hypoxia; J96.22 Acute and chronic respiratory failure with hypercapnia; T42.4X5A Adverse effect of benzodiazepines, initial encounter; T43.215A Adverse effect of selective serotonin and norepinephrine reuptake inhibitors, initial encounter; T42.6X5A Adverse effect of other antiepileptic and sedative-hypnotic drugs, initial encounter; J44.9 Chronic obstructive pulmonary disease, unspecified; E11.9 Type 2 diabetes mellitus without complications; I10 Essential (primary) hypertension; F17.210 Nicotine dependence, cigarettes, uncomplicated; E86.0 Dehydration; E11.65 Type 2 diabetes mellitus with hyperglycemia; E66.01 Morbid (severe) obesity due to excess calories; Z68.37 Body mass index [BMI] 37.0-37.9, adult
CPT/HCPCS: 36415; 36600; 70450; 71045; 80047; 80053; 81001; 82803; 82947; 83735; 85014; 85025; 85651; 93005; 93010; A9270-GY; J1650; J7030

== ENCOUNTER → 2020-04-16 | Outpatient (CLI) | payer OTHER ==
[~2020-04-16] MED LIST changes: +ALBU90OI6 INH; +AMLO10 PO; +BUPROPION XL150 M1 PO; +FLUTICASONE-SA1 EA10 INH; +GABAPENTIN600 MG PO; +GUAI600T33 PO; +IPRAT-ALBUT 0.5-3 ML NEB; +LORAZEPAM0.5 MG PO; +NICODERM CQ1 EAC1 TOP; +PRAZ2 PO; +Prednisone20 MG PO; +QUETIAPINE FUMA50 M2 PO; +Trazodone HCl300 MG PO
[2020-04-18 13:38] LABS: CORONAVIRUS (COVID19) CSH-NRL Negative (Negative)
== END ==
LOC: PLD 16:42 → LAB SHORT 16:42
PROVIDERS: Physician Assistant
DX: Z20.828 Contact with and (suspected) exposure to other viral communicable diseases (principal)
CPT/HCPCS: U0003

== ENCOUNTER 2020-04-19 17:58 | Emergency (ER) | payer OTHER ==
[~2020-04-19] VITALS: Ht 177.8 cm; Wt 133.8 kg
[~2020-04-19 17:58] MED LIST changes: -Prednisone20 MG PO
[2020-04-19 18:43] LABS: BASOPHILS ABSOLUTE AUTO 0.03 K/mm3 (0.00-0.23); BASOPHILS PERCENT AUTO 0 % (0-2); EOSINOPHILS ABSOLUTE AUTO 0.16 K/mm3 (0.00-0.68); EOSINOPHILS PERCENT AUTO 2 % (0-6); Hematocrit 46.5 % (37.0-53.0); Hemoglobin 14.6 g/dL (13.5-17.5); IMMATURE GRAN ABSOLUTE AUTO 0.05 K/mm3 (0.00-0.10); IMMATURE GRAN PERCENT AUTO 1 % (0-1); LYMPHOCYTES ABSOLUTE AUTO 1.41 K/mm3 (0.84-5.20); LYMPHOCYTES PERCENT AUTO 14 % (21-46); MONOCYTES ABSOLUTE AUTO 1.05 K/mm3 (0.16-1.47); MONOCYTES PERCENT AUTO 10 % (4-13); Mean Corpuscular HGB 28.2 pg (26.0-34.0); Mean Corpuscular HGB Conc 31.4 g/dL (31.5-36.5); Mean Corpuscular Volume 90 fL (80-100); Mean Platelet Volume 11.3 fL (9.1-12.4); NEUTROPHILS ABSOLUTE AUTO 7.52 K/mm3 (1.96-9.15); NEUTROPHILS PERCENT AUTO 74 % (41-73); Platelet Count 223 K/mm3 (150-400); RDW Coefficient Variation 14.2 % (11.7-14.2); RDW Standard Deviation 46.7 fL (35.1-46.3); Red Blood Cell Count 5.18 M/mm3 (4.30-5.90); White Blood Cell Count 10.22 K/mm3 (4.00-11.30)
[2020-04-19 19:04] LABS: Alanine Aminotransfer (ALT/SGP 35 U/L (12-78); Albumin, Blood 3.4 g/dL (3.4-5.0); Albumin/Globulin Ratio 1.1 (0.8-1.8); Alk Phos 107 U/L (50-136); Anion Gap 6 mmol/L (6-16); Aspartate Aminotrans (AST/SGOT 19 U/L (12-37); Bilirubin, Total 0.2 mg/dL (0.1-1.0); Blood Urea Nitrogen 20 mg/dL (8-24); Bun/Creatinine Ratio 21.4 (12.0-20.0); CO2, Blood 27 mmol/L (21-32); Calcium, Blood 9.1 mg/dL (8.5-10.1); Chloride, Blood 106 mmol/L (98-108); Creatinine, Blood 0.93 mg/dL (0.60-1.20); Globulin, Blood 3.1 g/dL (2.2-4.0); Glomerular Filtration Rate >60 (60-); Glucose, Blood 363 mg/dL (70-99); Potassium, Blood 4.2 mmol/L (3.5-5.5); Sodium, Blood 139 mmol/L (136-145); Total Protein, Blood 6.5 g/dL (6.4-8.2)
[2020-04-19 20:57] LABS: Influenza A, PCR Negative (NEGATIVE); Influenza B, PCR Negative (NEGATIVE); Resp Syncytial Virus, PCR Negative (NEGATIVE); SARS-Cov-2 (COVID-19) PCR, MMC Negative (NEGATIVE)
[2020-04-19] MEDS ORDERED: PRED20 PO (22:09)
== END 2020-04-19 22:19 | disposition home or self-care (01) ==
LOC: ER 17:58
PROVIDERS: Emergency Medicine
DX: J44.1 Chronic obstructive pulmonary disease with (acute) exacerbation (principal); R07.9 Chest pain, unspecified; I10 Essential (primary) hypertension; E11.9 Type 2 diabetes mellitus without complications; F32.9 Major depressive disorder, single episode, unspecified; J44.9 Chronic obstructive pulmonary disease, unspecified; F17.210 Nicotine dependence, cigarettes, uncomplicated; Z20.828 Contact with and (suspected) exposure to other viral communicable diseases; Z88.6 Allergy status to analgesic agent; Z88.2 Allergy status to sulfonamides; Z91.040 Latex allergy status; Z88.8 Allergy status to other drugs, medicaments and biological substances; Z79.899 Other long term (current) drug therapy
CPT/HCPCS: 0241U; 36415; 71045; 80053; 83880; 84484; 85025; 93005; 93010; 94640; 96374; 96375; 99285-25; J2930; J3475; J7030

== ENCOUNTER 2020-04-25 23:49 | Emergency (ER) | payer OTHER ==
[~2020-04-25] VITALS: Ht 177.8 cm; Wt 131.5 kg
[2020-04-26 00:37] LABS: BASOPHILS ABSOLUTE AUTO 0.04 K/mm3 (0.00-0.23); BASOPHILS PERCENT AUTO 0 % (0-2); EOSINOPHILS ABSOLUTE AUTO 0.22 K/mm3 (0.00-0.68); EOSINOPHILS PERCENT AUTO 2 % (0-6); Hematocrit 47.1 % (37.0-53.0); Hemoglobin 14.7 g/dL (13.5-17.5); IMMATURE GRAN ABSOLUTE AUTO 0.08 K/mm3 (0.00-0.10); IMMATURE GRAN PERCENT AUTO 1 % (0-1); LYMPHOCYTES ABSOLUTE AUTO 2.11 K/mm3 (0.84-5.20); LYMPHOCYTES PERCENT AUTO 22 % (21-46); MONOCYTES ABSOLUTE AUTO 1.14 K/mm3 (0.16-1.47); MONOCYTES PERCENT AUTO 12 % (4-13); Mean Corpuscular HGB 28.3 pg (26.0-34.0); Mean Corpuscular HGB Conc 31.2 g/dL (31.5-36.5); Mean Corpuscular Volume 91 fL (80-100); NEUTROPHILS ABSOLUTE AUTO 5.87 K/mm3 (1.96-9.15); NEUTROPHILS PERCENT AUTO 62 % (41-73); Platelet Count 218 K/mm3 (150-400); RDW Coefficient Variation 14.4 % (11.7-14.2); RDW Standard Deviation 47.8 fL (35.1-46.3); White Blood Cell Count 9.46 K/mm3 (4.00-11.30)
[2020-04-26 00:57] LABS: Alanine Aminotransfer (ALT/SGP 43 U/L (12-78); Albumin, Blood 3.2 g/dL (3.4-5.0); Albumin/Globulin Ratio 1.1 (0.8-1.8); Alk Phos 115 U/L (50-136); Anion Gap 5 mmol/L (6-16); Aspartate Aminotrans (AST/SGOT 17 U/L (12-37); Bilirubin, Total 0.3 mg/dL (0.1-1.0); Blood Urea Nitrogen 27 mg/dL (8-24); Bun/Creatinine Ratio 23.9 (12.0-20.0); CO2, Blood 31 mmol/L (21-32); Chloride, Blood 102 mmol/L (98-108); Creatinine, Blood 1.13 mg/dL (0.60-1.20); Glomerular Filtration Rate >60 (60-); Glucose, Blood 483 mg/dL (70-99); Potassium, Blood 4.3 mmol/L (3.5-5.5); Sodium, Blood 138 mmol/L (136-145); Total Protein, Blood 6.2 g/dL (6.4-8.2)
[2020-04-26] MEDS ORDERED: Prednisone20 MG PO (01:53)
== END 2020-04-26 02:22 | disposition home or self-care (01) ==
LOC: ER 23:49
PROVIDERS: Emergency Medicine
DX: J44.1 Chronic obstructive pulmonary disease with (acute) exacerbation (principal); I10 Essential (primary) hypertension; E11.9 Type 2 diabetes mellitus without complications; F32.9 Major depressive disorder, single episode, unspecified; F17.210 Nicotine dependence, cigarettes, uncomplicated; Z79.899 Other long term (current) drug therapy; Z79.52 Long term (current) use of systemic steroids; Z88.2 Allergy status to sulfonamides; Z88.6 Allergy status to analgesic agent; Z91.040 Latex allergy status
CPT/HCPCS: 36415; 71045; 80053; 85025; 93005; 93010; 94640; 99285-25

== ENCOUNTER 2020-07-01 13:28 | Emergency (ER) | payer OTHER ==
[~2020-07-01] VITALS: Ht 170.2 cm; Wt 127.0 kg
[~2020-07-01 13:28] MED LIST changes: +Prednisone20 MG PO
[2020-07-01] MEDS ORDERED: PRED10 PO (15:49)
[2020-07-01] MEDS ORDERED: ERYT.5TO BOTHEYES (15:49)
[2020-09-11] MEDS ORDERED: TRAZ150T57 PO (01:59)
[2020-09-11] MEDS ORDERED: ESCI10 PO (01:59)
[2020-09-11] MEDS ORDERED: CLON.5 (01:59)
[2020-09-11] MEDS ORDERED: METFORMIN HCL500 M3 PO (02:00)
== END 2020-07-01 15:54 | disposition home or self-care (01) ==
LOC: ER 13:28
DX: H10.9 Unspecified conjunctivitis (principal); I10 Essential (primary) hypertension; E11.9 Type 2 diabetes mellitus without complications; J44.9 Chronic obstructive pulmonary disease, unspecified; F17.210 Nicotine dependence, cigarettes, uncomplicated; Z88.6 Allergy status to analgesic agent; Z88.2 Allergy status to sulfonamides; Z91.040 Latex allergy status; Z88.8 Allergy status to other drugs, medicaments and biological substances; Z79.899 Other long term (current) drug therapy; Z79.52 Long term (current) use of systemic steroids
CPT/HCPCS: 99282

== ENCOUNTER 2020-08-17 17:50 | Emergency (ER) | payer OTHER ==
[~2020-08-17] VITALS: Ht 170.2 cm; Wt 127.0 kg
[~2020-08-17 17:50] MED LIST changes: +ERYT.5TO BOTHEYES; +PRED10 PO
[2020-08-17 19:27] LABS: BASOPHILS ABSOLUTE AUTO 0.03 K/mm3 (0.00-0.23); BASOPHILS PERCENT AUTO 0 % (0-2); EOSINOPHILS ABSOLUTE AUTO 0.28 K/mm3 (0.00-0.68); EOSINOPHILS PERCENT AUTO 2 % (0-6); Hematocrit 48.5 % (37.0-53.0); Hemoglobin 15.5 g/dL (13.5-17.5); IMMATURE GRAN ABSOLUTE AUTO 0.06 K/mm3 (0.00-0.10); IMMATURE GRAN PERCENT AUTO 1 % (0-1); LYMPHOCYTES PERCENT AUTO 16 % (21-46); MONOCYTES ABSOLUTE AUTO 1.47 K/mm3 (0.16-1.47); MONOCYTES PERCENT AUTO 13 % (4-13); Mean Corpuscular HGB 27.1 pg (26.0-34.0); Mean Corpuscular Volume 85 fL (80-100); NEUTROPHILS ABSOLUTE AUTO 7.79 K/mm3 (1.96-9.15); NEUTROPHILS PERCENT AUTO 68 % (41-73); RDW Coefficient Variation 13.4 % (11.7-14.2); RDW Standard Deviation 41.4 fL (35.1-46.3); Red Blood Cell Count 5.71 M/mm3 (4.30-5.90); White Blood Cell Count 11.43 K/mm3 (4.00-11.30)
[2020-08-17 19:28] LABS: Mean Platelet Volume 10.8 fL (9.1-12.4); Platelet Count 192 K/mm3 (150-400)
[2020-08-17 19:42] LABS: Anion Gap 2 mmol/L (6-16); Blood Urea Nitrogen 23 mg/dL (8-24); Bun/Creatinine Ratio 22.3 (12.0-20.0); CO2, Blood 32 mmol/L (21-32); Calcium, Blood 8.7 mg/dL (8.5-10.1); Chloride, Blood 104 mmol/L (98-108); Creatinine, Blood 1.03 mg/dL (0.60-1.20); Glomerular Filtration Rate >60 (60-); Glucose, Blood 201 mg/dL (70-99); Potassium, Blood 4.2 mmol/L (3.5-5.5); Sodium, Blood 138 mmol/L (136-145)
[2020-08-17] MEDS ORDERED: AMOCLA875 PO (20:55)
[2020-09-11] MEDS ORDERED: CLON.5 (01:59)
[2020-09-11] MEDS ORDERED: ESCI10 PO (01:59)
[2020-09-11] MEDS ORDERED: TRAZ150T57 PO (01:59)
[2020-09-11] MEDS ORDERED: METFORMIN HCL500 M3 PO (02:00)
== END 2020-08-17 21:06 | disposition home or self-care (01) ==
LOC: ER 17:50
PROVIDERS: Emergency Medicine
DX: L03.213 Periorbital cellulitis (principal); I10 Essential (primary) hypertension; E11.9 Type 2 diabetes mellitus without complications; F17.200 Nicotine dependence, unspecified, uncomplicated; J44.9 Chronic obstructive pulmonary disease, unspecified; Z88.6 Allergy status to analgesic agent; Z88.2 Allergy status to sulfonamides; Z88.5 Allergy status to narcotic agent; Z91.040 Latex allergy status; Z79.899 Other long term (current) drug therapy
CPT/HCPCS: 36415; 70487; 80048; 84443; 85025; 86140; 87070; 87077; 87186; 87205; 99284-25; A9270; Q9967